=== PATIENT | male | born 1955 | race Caucasian/White ===

== ENCOUNTER → 2018-01-24 | Outpatient (CLI) | payer OTHER ==
--- NOTE | 2018-01-25 10:08 | CT ---
EXAMINATION TYPE: CT urogram wo/w con DATE OF EXAM: 01/24/2018 COMPARISON: NONE HISTORY: Asymptomatic microscopic hematuria per order. CT DLP: 2053 mGycm, Automated Exposure Control for Dose Reduction was Utilized. CONTRAST: CT scan of the abdomen and pelvis is performed without oral and without and with IV Contrast, patient injected with 100 mL of Omnipaque 300. Urogram protocol with Three-D reconstructed images created on independent workstation and reviewed. FINDINGS: KUB: Noncontrast images show marked end-stage atrophy of the left kidney which is small in size with scattered appearing cortical cysts and marked cortical thinning. No right-sided renal calculi are cabrera ntified. Postcontrast images show cortical medullary uptake and excretion in the right kidney with ex pected poor uptake and none visualized excretion in the atrophic left kidney. There is no right-sided hydronephrosis. There are several scattered simple appearing cysts throughout the right kidney. No s uspicious solid or cystic renal mass is evident bilaterally. Right ureter is well-opacified without o bstructing mass or stone. No suspicious focal dilatation is seen. Bladder shows no worrisome mass or calculus. Some adjacent scattered pelvic phleboliths are seen. LUNG BASES: No significant abnormality is appreciated. LIVER/GB: There is simple appearing 1.8 cm cyst left hepatic lobe axial image 7. Gallbladder is poorl y distended. PANCREAS: No significant abnormality is seen. SPLEEN: No significant abnormality is seen. ADRENALS: No significant abnormality is seen. BOWEL: Diverticula are scattered throughout the colon most prominent in the sigmoid colon. There is n o CT evidence for acute diverticulitis. Normal-appearing appendix incidentally noted. PROSTATE/SEMINAL VESICLES: Prostate gland is upper limits of normal in size with central zone calcifi cations. LYMPH NODES: No greater than 1cm abdominal or pelvic lymph nodes are appreciated. OSSEOUS STRUCTURES: There is marked disc space narrowing with vacuum disc phenomenon and endplate scl erosis lumbosacral junction. OTHER: There is moderate to borderline severe mixed plaque in the abdominal aorta extending into zachery c branch vessels IMPRESSION: No significant finding is seen to account for patient's clinical symptoms of hematuria. End-stage atrophy of left kidney noted. Simple appearing cysts are scattered throughout both kidneys.
== END | disposition home or self-care (01) ==
LOC: RADCTMAIN 15:56
PROVIDERS: ATTEND Urology
DX: N26.1 Atrophy of kidney (terminal) (principal); R31.21 Asymptomatic microscopic hematuria; N28.1 Cyst of kidney, acquired
CPT/HCPCS: 74178; 74400; Q9967